=== PATIENT | female | born 1940 | race Caucasian/White ===

== ENCOUNTER 2016-06-04 08:17 | Observation (INO) | payer MEDICARE ==
[2016-06-04] MEDS ORDERED: ECOTRIN PO ONE (08:41)
[2016-06-04] MEDS ORDERED: NACL 0.9% 500 ML 500 ML IV SCH (09:00)
[2016-06-04 10:02] LABS: Basophils % (Auto) 0.7 % (0.0-1.8); Eosinophils % (Auto) 2.9 % (0.0-4.3); Hematocrit 40.6 % (30.3-42.9); Hemoglobin 13.3 gm/dl (10.1-14.3); Mean Corpuscular HGB Conc 33 % (30-34); Mean Corpuscular Hemoglobin 27 pg (28-32); Mean Corpuscular Volume 83 fl (79-97); Platelet Count 246 K/mm3 (140-440); Red Blood Count 4.91 M/mm3 (3.65-5.03); White Blood Count 9.3 K/mm3 (4.5-11.0)
[2016-06-04] MEDS ORDERED: HEPARIN/NS 5000 UNIT/500ML(CATH LAB) 1,000 ML IR ONE ×2 (10:17→12:57)
[2016-06-04 10:29] LABS: INR 0.9 (0.87-1.13)
[2016-06-04] MEDS: SUBLIMAZE ONE ×5 (10:46→13:09)
[2016-06-04] MEDS: VERSED ONE ×4 (10:46→13:09)
[2016-06-04] MEDS: XYLOCAINE 1% 20 mL ONE ×3 (10:46→11:20)
[2016-06-04] MEDS ORDERED: APRESOLINE ONE (11:06)
[2016-06-04] MEDS ORDERED: HEPARIN/ 0.45% NACL-25,000 UNIT/500 ML 500 ML ONE ×2 (11:28→11:36)
[2016-06-04] MEDS ORDERED: NITROGLYCERIN SYRINGE 3 ML ONE (12:57)
[2016-06-04] MEDS ORDERED: XYLOCAINE 1% 20 mL ONE (12:57)
[2016-06-04] MEDS ORDERED: NACL 0.9% 500 ML 500 ML ONE (13:01)
[2016-06-04] MEDS ORDERED: SUBLIMAZE ONE (13:14)
[2016-06-04] MEDS ORDERED: VERSED ONE (13:14)
[2016-06-04] MEDS: BENADRYL ONE ×2 (13:15→13:26)
[2016-06-04] MEDS: HEPARIN 10,000 UNITS/10 ML ONE ×2 (13:25→13:33)
--- NOTE | 2016-06-04 13:42 | Cardiac Catherization Report ---
LEFT HEART CATHETERIZATION PROCEDURES PERFORMED: 1. Selective left and right coronary angiography. 2. Left ventriculography. DESCRIPTION OF PROCEDURE: After obtaining written consent, the patient was draped using sterile technique. A 2% lidocaine was injected into the right groin. Using micropuncture technique, a 5-Indian vascular sheath was inserted into the right common femoral artery. A 5-Indian JL4 catheter was used to selectively engage the left coronary artery. A 5-Indian 3DRC catheter was used to selectively engage the right coronary artery. A 5-Indian JR4 catheter was used to perform a hand injected LV gram. No complications occurred during the procedure. ESTIMATED BLOOD LOSS: Minimal. SPECIMEN REMOVED: None. FINDINGS: HEMODYNAMICS: Aortic pressure is 188/78, left ventricular systolic pressure is 188 mmHg with a diastolic pressure of 39 mmHg. No significant gradient was noted across left ventricular outflow tract. CARDIAC STRUCTURES: The left ventricle is normal in size and systolic function with the left ventricular ejection fraction estimated at 60%. CORONARY ANATOMY: 1. This is a right dominant circulation. 2. The left main has mild nonobstructive luminal irregularities. 3. The left anterior descending artery has evidence of a 20% tubular stenosis in the proximal segment. This is followed by another 40% tubular stenosis in the mid segment. The distal LAD tapers to a 1-2 mm vessel diameter. There is evidence of a patent stent noted in the first diagonal artery. 4. The left circumflex artery is a small caliber vessel. The left circumflex artery exhibits evidence of an 80% tubular stenosis of the first obtuse marginal. There is also another tubular 80% stenosis of the second obtuse marginal. 5. The right coronary artery is dominant. The right coronary artery has a 40% tubular stenosis extending from the ostium into the proximal segment of the vessel. No significant flow limiting obstruction noted. IMPRESSION: 1. Significant obstructive disease noted in the first and second obtuse marginal of the left circumflex system. 2. Patent stent noted in the first diagonal artery. 3. Normal left ventricular size and systolic function. 4. Elevated LVEDP measured at 39 mmHg. RECOMMENDATIONS: Proceed with PCI to the obtuse marginals. [facility]# [id number] JANINE/ROSALBA
[2016-06-04] MEDS: PLAVIX ONE ×2 (13:50→13:53)
[2016-06-04] MEDS: ALUM-MAG HYDROX-SIMETH 200-200-20MG/5ML ONE ×2 (13:53→14:03)
[2016-06-04] MEDS ORDERED: TYLENOL PO PRN (14:12)
[2016-06-04] MEDS ORDERED: ZOFRAN IV PRN (14:12)
[2016-06-04] MEDS ORDERED: AMBIEN PO PRN (14:12)
[2016-06-04] MEDS ORDERED: PEPCID PO PRN (14:14)
[2016-06-04] MEDS ORDERED: ROBAXIN PO PRN (14:14)
--- NOTE | 2016-06-04 14:22 | Cardiac Catherization Report ---
CORONARY ANGIOPLASTY REASON FOR PROCEDURE: The patient is a 75-year-old woman who underwent cardiac catheterization today. Please see cardiac catheterization report as dictated by Dr. Martini. She was referred to the interventional service for angioplasty and stenting of the circumflex system. Review of the angiograms reveals a long up to 80% stenosis of the large first obtuse marginal branch of the circumflex system. Following that, there was diffuse atherosclerosis of the AV groove circumflex leading to a much smaller caliber terminal obtuse marginal. We planned for coronary intervention to the first obtuse marginal. PROCEDURE: A 3.5 EBU guiding catheter was advanced to the left coronary ostium. Preintervention angiograms were taken. A 0.014 inch Flamer Sealer 50 guidewire was then introduced, across the stenosis into the large first obtuse marginal branch. In the primary stenting maneuver, a 2.5 x 15 mm Xience drug-eluting stent was deployed covering the entire lesional segment. The stent was inflated to optimum pressures. Following stenting, there was an excellent angiographic result, 0 residual stenosis at the treated site, and MILDRED 3 flow down the vessel. No intervention was performed to the diffuse atherosclerosis of the mid vessel leading to a small terminal obtuse marginal. CONCLUSION: Successful angioplasty and stenting of the first obtuse marginal branch of the circumflex system. A 2.5 mm Xience drug-eluting stent was used to successfully treat a long 80% stenosis, with an excellent postprocedure angiographic result. JOB# [id number] BRENDAN/ROSALBA
--- NOTE | 2016-06-04 14:27 | Event Note ---
Date: 06/04/16 Successful PCI of the OM1 with 2.5mm DE stent. Admit overnight post PCI obs. Okay for discharge in am. Same home meds.
--- NOTE | 2016-06-04 14:34 | Discharge Summary ---
Short Stay Discharge Plan Activity: advance as tolerated Weight Bearing Status: Partial Weight Bearing Diet: low fat, low cholesterol, low salt, diabetic Wound: keep clean and dry Special Instructions: no heavy lifting (3 days) Follow up with: ABHILASH YOUNG MD [Primary Care Provider] - 7 Days CHRISSY ROSALES MD [Staff Physician] - 7 Days
[2016-06-04] MEDS ORDERED: NACL 0.9% 1000 ML 1,000 ML IV SCH (15:00)
[2016-06-04] MEDS: ULTRAM PO PRN (15:10)
[2016-06-04] MEDS ORDERED: NACL 0.9% 1000 ML 1,000 ML ONE (17:38)
[2016-06-04] MEDS: TENORMIN PO SCH (17:58)
[2016-06-04 20:17] LABS: Calcium 8.2 mg/dL (8.4-10.2); Chloride 102.7 mmol/L (98-107); Potassium 3.8 mmol/L (3.6-5.0)
[2016-06-04] MEDS: NEURONTIN PO SCH (22:10)
[2016-06-05 05:38] LABS: Basophils % (Auto) 0.2 % (0.0-1.8); Eosinophils % (Auto) 0.1 % (0.0-4.3); Hemoglobin 11.9 gm/dl (10.1-14.3); Mean Corpuscular HGB Conc 32 % (30-34); Mean Corpuscular Hemoglobin 27 pg (28-32); Mean Corpuscular Volume 83 fl (79-97); Platelet Count 203 K/mm3 (140-440); Red Blood Count 4.47 M/mm3 (3.65-5.03); Red Cell Distribution Width 15.4 % (13.2-15.2); White Blood Count 9.1 K/mm3 (4.5-11.0)
[2016-06-05] MEDS: NEURONTIN PO SCH ×3 (05:46→22:49)
[2016-06-05 06:00] LABS: Creatine Kinase MB 9.6 ng/mL (0.0-4.0)
[2016-06-05 06:05] LABS: BUN/Creatinine Ratio 16.47; Calcium 7.7 mg/dL (8.4-10.2); Chloride 104.5 mmol/L (98-107); Potassium 4.1 mmol/L (3.6-5.0)
[2016-06-05] MEDS: ECOTRIN PO SCH (09:23)
[2016-06-05] MEDS: CLARITIN PO SCH (09:24)
[2016-06-05] MEDS: PLAVIX PO SCH (09:24)
[2016-06-05] MEDS: K-DUR PO SCH (09:24)
[2016-06-05] MEDS: TENORMIN PO SCH (09:24)
[2016-06-05] MEDS: IMDUR PO SCH (09:24)
[2016-06-05] MEDS: LASIX PO SCH (09:25)
--- NOTE | 2016-06-05 10:29 | XRay Report ---
AP CHEST : 06/04/16 14:12:00 CLINICAL: Chest pain. COMPARISON:10/06/12 FINDINGS: Cardiomegaly and mild redistribution of pulmonary blood flow to the upper lobes. Mild bibasal reticular interstitial opacities which are new compared to the prior exam. No pulmonary consolidation. No tubes or lines. The bones and soft tissues are unremarkable. IMPRESSION: Mild CHF.
--- NOTE | 2016-06-05 10:55 | Progress Note ---
Assessment and Plan 1. Coronary artery disease status post PCI to the obtuse marginal branch currently stable 2. Essential hypertension 3. Obesity 4. Hyperlipidemia 5. Mild acute on chronic renal insufficiency. Plan. Acute on chronic renal insufficiency post cardiac cath and PCI probably secondary to contrast nephropathy. Start mild IV hydration monitor BUN/ creatinine and creatinine. Subjective Date of service: 06/05/16 Interval history: No cardiac symptoms. Objective Vital Signs Temp Pulse Pulse Resp Resp BP BP 06/05/16 08:07 97.4 F L 72 20 151/65 06/05/16 05:15 98.2 F 75 18 151/70 06/05/16 00:36 80 18 06/05/16 00:31 97.6 F 83 20 158/67 06/04/16 22:04 06/04/16 20:32 18 06/04/16 20:21 98.2 F 77 18 139/63 06/04/16 19:23 77 06/04/16 18:00 78 16 167/64 06/04/16 17:58 78 147/63 06/04/16 17:30 78 16 158/59 06/04/16 16:30 79 14 157/60 06/04/16 16:00 80 13 156/69 06/04/16 15:30 82 14 144/69 06/04/16 15:00 82 16 149/57 06/04/16 14:45 85 16 141/62 06/04/16 14:30 84 14 136/62 06/04/16 14:15 97.6 F 84 18 146/59 06/04/16 12:30 80 18 172/67 06/04/16 12:15 78 18 164/69 06/04/16 11:53 98.3 F 79 18 177/68 Pulse Ox 06/05/16 08:07 96 06/05/16 05:15 98 06/05/16 00:36 06/05/16 00:31 93 06/04/16 22:04 95 06/04/16 20:32 06/04/16 20:21 97 06/04/16 19:23 06/04/16 18:00 98 06/04/16 17:58 06/04/16 17:30 96 06/04/16 16:30 97 06/04/16 16:00 98 06/04/16 15:30 98 06/04/16 15:00 99 01/13/17 14:45 98 06/04/16 14:30 97 06/04/16 14:15 98 06/04/16 12:30 99 06/04/16 12:15 99 06/04/16 11:53 98 - Physical Examination General: Appears Well, No Apparent Distress HEENT: Positive: Normocephaly Neck: Positive: neck supple, trachea midline. Negative: JVD/HJR Cardiac: Positive: Reg Rate and Rhythm, S1/S2, PMI, Laterally Displaced Lungs: Positive: clear to auscultation, No Wheeze, Rales, Rhonchi Neuro: Positive: Grossly Intact Abdomen: Positive: Unremarkable, Active Bowel Sounds Extremities: Absent: edema - Labs and Meds Cardiac Enzymes 06/05/16 Range/Units 05:04 CK-MB (CK-2) 9.6 H (0.0-4.0) ng/mL Coagulation 06/04/16 Range/Units 09:35 APTT 23.5 L (24.2-36.6) Sec. Lipids 06/05/16 Range/Units 05:04 Triglycerides 128 (2-149) mg/dL Cholesterol 240 H (50-199) mg/dL HDL Cholesterol 95 H (40-59) mg/dL Cholesterol/HDL Ratio 2.52 % CBC 06/05/16 Range/Units 05:04 WBC 9.1 (4.5-11.0) K/mm3 RBC 4.47 (3.65-5.03) M/mm3 Hgb 11.9 (10.1-14.3) gm/dl Hct 37.0 (30.3-42.9) % Plt Count 203 (140-440) K/mm3 Lymph # 2.5 (1.2-5.4) K/mm3 [place] # 0.6 (0.0-0.8) K/mm3 Eos # 0.0 (0.0-0.4) K/mm3 Baso # 0.0 (0.0-0.1) K/mm3 Comprehensive Metabolic Panel 06/04/16 06/05/16 Range/Units 19:33 05:04 Sodium 137 139 (137-145) mmol/L Potassium 3.8 4.1 (3.6-5.0) mmol/L Chloride 102.7 104.5 (98-107) mmol/L Carbon Dioxide 20 L 20 L (22-30) mmol/L BUN 24 H 28 H (7-17) mg/dL Creatinine 1.5 H 1.7 H (0.7-1.2) mg/dL Glucose 236 H 245 H (65-100) mg/dL Calcium 8.2 L 7.7 L (8.4-10.2) mg/dL - Telemetry EKG Rhythm: Sinus Rhythm
[2016-06-05] MEDS ORDERED: NACL 0.45% 500 ML IV SCH (11:00)
[2016-06-05 12:00] LABS: BUN/Creatinine Ratio 16.47; Calcium 7.6 mg/dL (8.4-10.2); Potassium 4.1 mmol/L (3.6-5.0)
[2016-06-05] MEDS: ULTRAM PO PRN (23:36)
[2016-06-06] MEDS: NEURONTIN PO SCH ×3 (05:29→22:24)
[2016-06-06] MEDS: PLAVIX PO SCH (09:46)
[2016-06-06] MEDS: ECOTRIN PO SCH (09:46)
[2016-06-06] MEDS: IMDUR PO SCH (09:46)
[2016-06-06] MEDS: K-DUR PO SCH (09:47)
[2016-06-06] MEDS: TENORMIN PO SCH (09:47)
[2016-06-06] MEDS: CLARITIN PO SCH (09:48)
[2016-06-06] MEDS: LASIX PO SCH (09:48)
[2016-06-06] MEDS ORDERED: HABITROL TD SCH (10:00)
--- NOTE | 2016-06-06 10:03 | Progress Note ---
Assessment and Plan 1. Coronary artery disease status post PCI to the obtuse marginal branch currently stable 2. Essential hypertension 3. Obesity 4. Hyperlipidemia 5. Mild acute on chronic renal insufficiency. Plan. Acute on chronic renal insufficiency post cardiac cath and PCI probably secondary to contrast nephropathy. Started on IV hydration check BMP today. Subjective Date of service: 06/06/16 Interval history: No cardiac symptoms. Objective Vital Signs Temp Pulse Pulse Resp BP Pulse Ox 06/06/16 07:30 98.3 F 65 22 190/78 96 06/06/16 05:03 97.6 F 67 18 163/54 94 06/06/16 04:00 62 06/06/16 00:09 98.2 F 65 18 177/70 94 06/05/16 20:07 97.8 F 67 20 142/63 99 06/05/16 15:21 98.4 F 64 20 108/54 97 06/05/16 15:00 75 06/05/16 11:12 97.2 F L 66 20 129/60 97 - Physical Examination General: Appears Well, No Apparent Distress HEENT: Positive: Normocephaly Neck: Positive: neck supple, trachea midline. Negative: JVD/HJR Cardiac: Positive: Regular Rate, S1/S2, PMI, Other Lungs: Positive: clear to auscultation, No Wheeze, Rales, Rhonchi Neuro: Positive: Grossly Intact Abdomen: Positive: Unremarkable, Active Bowel Sounds Extremities: Absent: edema - Labs and Meds Comprehensive Metabolic Panel 06/05/16 Range/Units 11:10 Sodium 139 (137-145) mmol/L Potassium 4.1 (3.6-5.0) mmol/L Chloride 104.0 (98-107) mmol/L Carbon Dioxide 20 L (22-30) mmol/L BUN 28 H (7-17) mg/dL Creatinine 1.7 H (0.7-1.2) mg/dL Glucose 226 H (65-100) mg/dL Calcium 7.6 L (8.4-10.2) mg/dL
[2016-06-06 11:16] LABS: Calcium 7.5 mg/dL (8.4-10.2); Chloride 102.8 mmol/L (98-107); Potassium 4.1 mmol/L (3.6-5.0)
[2016-06-06] MEDS: NACL 0.45% 1000 ML 1,000 ML IV SCH (11:55)
[2016-06-06] MEDS: ULTRAM PO PRN (20:30)
[2016-06-07] MEDS: NACL 0.45% 1000 ML 1,000 ML IV SCH (05:21)
[2016-06-07] MEDS: NEURONTIN PO SCH ×2 (05:21→14:37)
[2016-06-07] MEDS: IMDUR PO SCH ×2 (09:52→09:53)
[2016-06-07] MEDS: PLAVIX PO SCH (09:52)
[2016-06-07] MEDS: LASIX PO SCH (09:53)
[2016-06-07] MEDS: K-DUR PO SCH (09:53)
[2016-06-07] MEDS: CLARITIN PO SCH (09:53)
[2016-06-07] MEDS: ECOTRIN PO SCH (09:53)
[2016-06-07 10:13] LABS: BUN/Creatinine Ratio 18.23; Calcium 7.8 mg/dL (8.4-10.2); Chloride 99.3 mmol/L (98-107)
[2016-06-07 10:15] LABS: Potassium 4.7 mmol/L (3.6-5.0)
[2016-06-07] MEDS: TENORMIN PO SCH (10:15)
--- NOTE | 2016-06-07 10:48 | Admit Criteria Form ---
Admission Criteria Documentation: TELEMETRY CARE Telemetry Admission Guidelines (Place 'X' for any and all applicable criteria): Admission to telemetry [A] may be indicated for ANY ONE of the following(1)(2)(3 )(4)(5): [X ]I. Cardiac disease, including ANY ONE of the following (9)(10)(11)(12)( 13): [ ]a) Postacute DE [ ]b) Low-risk patients with ST-segment elevation DE who have undergone successful percutaneous coronary intervention [ ]c) Unstable angina [ ]d) Suspected DE (until it is ruled out) [ ]e) Post cardiac surgery (first 48 to 72 hours unless complications occur) [ ]f) Acute arrhythmias (including significant tachycardia or bradycardia) [B] [ ]g) Firing of an implantable cardioverter defibrillator [C] [ ]h) Suspected pacemaker or implantable cardioverter defibrillator malfunction (10) [ ]i) New administration or adjustment of an antiarrhythmic drug [D ] [ ]j) Child admitted for acute congestive heart failure [ ]j) Long QT syndrome [ ]k) Advanced heart block (eg, second-degree Mobitz type II, third- degree heart block) [ ]l) Acute myocarditis or pericarditis [X ]m) Short-term (ambulatory or inpatient) monitoring after a cardiac procedure as indicated by ANY ONE of the following [E]: [ ]i) Electrophysiologic studies [ X]ii) Percutaneous coronary intervention with stent placement [ ]iii) Pacemaker placement with cardiac conduction defect [ ]iv) Implantable cardiac defibrillator placement [ ]II. Drug overdose or poisoning with substance that causes arrhythmias or QT prolongation (eg, phenothiazines, sympathomimetic agents, cyclic antidepressants, digitalis, antiarrhythmic drugs)(15) [ ]III. Short-term (ambulatory or inpatient) monitoring after therapeutic or diagnostic procedure requiring conscious sedation or anesthesia (eg, endoscopy, elective cardioversion) [ ]IV. Acute cerebrovascular even[F](18) [ ]V. Massive blood transfusion (eg, at least 10 units of packed red blood cells in 24 hours) [ ]. Variceal bleeding after endoscopy, sclerotherapy, or IV vasopressin [ ]VII. Uncorrected electrolyte abnormalities associated with an increased risk of dangerous arrhythmia [G]; examples include [ ]a) Hyperkalemia with attributable ECG changes [ ]b) Potassium greater than 6.5 mmol/L (mEq/L) in a patient without history of chronic renal disease [ ]c) Prolonged QT attributed to hypokalemia, hypomagnesemia, or hypocalcemia [ ]VIII.Unexplained syncope or other neurologic event suspected of being due to arrhythmia due to a finding that increases risk; examples include(19)(20)(21): [ ]a) High-risk ECG findings (eg, bifascicular block, bradycardia, abnormal QT interval, ventricular pre- excitation) [ ]b) History of previous syncope due to arrhythmia [ ]c) Abnormal ventricular function (eg, reduced ejection fraction ) [ ]d) Exertional or supine syncope [ ]e) Concerning syncope characteristics (eg, sudden loss of consciousness without prodrome) [ ]f) Family history of sudden [ ]g) Use of arrhythmogenic medication [ ]h) Suspected cardiac ischemia [ ]i) Known channelopathy (eg, long QT syndrome, Brugada syndrome, or catecholaminergic paroxysmal ventricular tachycardia) [ ]j) Known structural heart disease (eg, hypertrophic cardiomyopathy , severe valvular disease) [ ]k) Palpitations preceding syncope The original [employer] content created by [employer] has been revised. The portions of the content which have been revised are identified through the use of italic text or in bold, and [employer] [employer] has neither reviewed nor approved the modified material. All other unmodified content is copyright [employer]. Please see references footnoted in the original [employer] edition 2016 Admission Criteria Met: Yes
[2016-06-07 12:47] VITALS: BP 195/66
--- NOTE | 2016-06-07 14:39 | Discharge Summary ---
[id number] 06/04/16 14:12 Date of discharge: 06/07/16 Attending physician: CHRISSY ROSALES 06/04/16 Consult to Cardiac Rehabilitation [CONS] Routine Reason For Exam: post pci Primary care physician: ABHILASH YOUNG Hospitalization Condition: Good Hospital course: Patient with a history of coronary disease presented from the outpatient setting for a cardiac cath that showed patent stent noted in the first diagonal artery. There was significant coronary disease noted of the first obtuse marginal of the circumflex system which was treated with angioplasty and stenting using a Xience drug eluting stent. Left ventricular ejection fraction 60%. Post cardiac cath there was acute renal failure with a creatinine of 1.8 from 1.5 on presentation which was treated with IV hydration. Her creatinine has now stablized, today 1.7, and she is ready for discharge home today. Continue medical therapy for her coronary artery disease to include plavix, aspirin, beta blockers and statin therapy. Disposition: DISCHARGED TO HOME OR SELFCARE Core Measure Documentation - Palliative Care Palliative Care/ Comfort Measures: Not Applicable - Core Measures Any of the following diagnoses?: none Exam - Constitutional Vitals: Temp Pulse Resp BP Pulse Ox 97.6 F 61 22 195/66 97 06/07/16 12:46 06/07/16 12:46 06/07/16 12:46 06/07/16 12:46 06/07/16 12:46 General appearance: Present: no acute distress - EENT Eyes: Present: PERRL ENT: hearing intact - Neck Neck: Present: normal ROM - Respiratory Respiratory effort: normal - Cardiovascular Rhythm: regular Heart Sounds: Present: S1 & S2 - Psychiatric Psychiatric: appropriate mood/affect Plan Activity: advance as tolerated Diet: low fat, low cholesterol, low salt Additional Instructions: Continue home medications including plavix and aspirin. Follow up with: CHRISSY ROSALES MD [Staff Physician] - 7 Days ABHILASH YOUNG MD [Primary Care Provider] - 7 Days <BELINDA PAINTING - Last Filed: 06/07/16 20:24> Providers - Providers Date of Admission: 06/04/16 14:12 Attending physician: CHRISSY ROSALES 06/04/16 Consult to Cardiac Rehabilitation [CONS] Routine Reason For Exam: post pci Primary care physician: ABHILASH YOUNG Hospitalization Hospital course: Patient was admitted for observation after outpatient diagnostic cardiac catheterization followed by coronary intervention and stent placement. Discharge was delayed due to mild increase in her creatinine level post contrast angiography and intervention. Today, the patient looks and feels well, her creatinine has returned to baseline , and she is stable for discharge. Discharge she will be treated with routine anti-ischemic medications in addition to dual oral antiplatelet therapy. Exam - Constitutional Vitals: Temp Pulse Resp BP Pulse Ox 97.6 F 61 22 195/66 97 06/07/16 12:46 06/07/16 12:46 06/07/16 12:46 06/07/16 12:46 06/07/16 12:46
== END 2016-06-07 15:14 | disposition home or self-care (01) ==
LOC: OPU 08:17 → 4A 14:12
PROVIDERS: ADMIT Internal Medicine Cardiovascular Disease; ATTEND Internal Medicine
DX: I25.10 Atherosclerotic heart disease of native coronary artery without angina pectoris (principal); E11.65 Type 2 diabetes mellitus with hyperglycemia; E78.5 Hyperlipidemia, unspecified; I11.0 Hypertensive heart disease with heart failure; I50.30 Unspecified diastolic (congestive) heart failure; I87.2 Venous insufficiency (chronic) (peripheral); Z98.61 Coronary angioplasty status
CPT/HCPCS: 36415; 51702; 71010; 80048; 80061; 82550; 82553; 82962; 84484; 85025; 85347; 85610; 85730; 93005; 93010; 93458; 96372; 96374; A9270; C1769; C1874; C1887; C1894; C9600; G0378; J0360; J1200; J1644; J2250; J2930; J3010; J7030; J7040; 92928; 96365; 96376; J1815; Q9967

== ENCOUNTER 2016-09-10 10:25 | Outpatient (CLI) | payer MEDICARE ==
[2016-09-10 10:58] LABS: Hematocrit 39.2 % (30.3-42.9); Hemoglobin 12.5 gm/dl (10.1-14.3); Mean Corpuscular HGB Conc 32 % (30-34); Mean Corpuscular Hemoglobin 26 pg (28-32); Mean Corpuscular Volume 82 fl (79-97); Platelet Count 180 K/mm3 (140-440); Red Cell Distribution Width 14.1 % (13.2-15.2); White Blood Count 6.9 K/mm3 (4.5-11.0)
[2016-09-10 11:19] LABS: Albumin 3.3 g/dL (3.9-5); Albumin/Globulin Ratio 0.9 %; BUN/Creatinine Ratio 15.71; Bilirubin,Total 0.3 mg/dL (0.1-1.2); Calcium 8.7 mg/dL (8.4-10.2); Total Protein 7.1 g/dL (6.3-8.2)
--- NOTE | 2016-09-10 13:19 | XRay Report ---
CHEST 2 VIEWS INDICATION: Shortness of breath. COMPARISON: 06/05/2016 FINDINGS: PA and lateral chest radiographs again demonstrate extensive atherosclerotic aortic calcifications. Mild horizontal left mid lung scarring or atelectasis. No pleural effusions or CHF. Stable cardiomediastinal silhouette/mild cardiomegaly. Demineralized bones with mild thoracic spine degenerative spurring. CONCLUSION: No significant acute chest process with mild cardiomegaly and few other incidental findings, as above. Thank you for the opportunity to participate in this patient's care.
--- NOTE | 2016-09-10 13:57 | Nuclear Medicine Report ---
LUNG SCAN, VENTILATION AND PERFUSION: History: Shortness of breath. Findings: Inhalation of Xenon gas demonstrates a normal distribution of the activity throughout both lungs. The wash out phases show no focal retention of activity. After injection of Technetium 99m macroaggregated albumin gamma camera imaging of the lungs in multiple projections demonstrates normal pulmonary contours with a homogeneous distribution of activity. No focal areas of perfusion deficiency are identified. IMPRESSION: Normal study.
--- NOTE | 2016-09-13 07:25 | Vascular Lab Report ---
LOWER EXTREMITY VENOUS DUPLEX: REASON FOR EXAM: Swelling. COMMENTS ON THE RIGHT: All veins visualized are freely compressible without evidence of internal echogenicity. Flow is spontaneous and phasic throughout. 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 Flow is spontaneous and phasic throughout. IMPRESSION: No evidence of acute or chronic deep venous thrombosis in either lower extremity.
== END 2016-09-10 10:26 | disposition home or self-care (01) ==
LOC: VAS 10:25
PROVIDERS: ATTEND Internal Medicine
DX: I51.7 Cardiomegaly (principal); I70.0 Atherosclerosis of aorta; J98.11 Atelectasis
CPT/HCPCS: 36415; 71020; 78582; 80053; 85027; 93970; A9540; A9558

== ENCOUNTER 2017-01-13 09:01 | Day surgery (SDC) | payer MEDICARE ==
[2017-01-13 09:59] LABS: Basophils % (Auto) 0.5 % (0.0-1.8); Eosinophils % (Auto) 4.3 % (0.0-4.3); Hematocrit 36.2 % (30.3-42.9); Hemoglobin 11.9 gm/dl (10.1-14.3); Mean Corpuscular HGB Conc 33 % (30-34); Mean Corpuscular Hemoglobin 27 pg (28-32); Mean Corpuscular Volume 81 fl (79-97); Platelet Count 191 K/mm3 (140-440); Red Blood Count 4.47 M/mm3 (3.65-5.03); Red Cell Distribution Width 14.4 % (13.2-15.2); White Blood Count 8.7 K/mm3 (4.5-11.0)
[2017-01-13 10:24] LABS: INR 0.96 (0.87-1.13)
[2017-01-13 10:36] LABS: BUN/Creatinine Ratio 13.33; Calcium 8.6 mg/dL (8.4-10.2); Chloride 100.7 mmol/L (98-107); Potassium 4.3 mmol/L (3.6-5.0)
[2017-01-13] MEDS ORDERED: NACL 0.9% 500 ML 500 ML ONE (10:47)
[2017-01-13] MEDS ORDERED: NACL 0.9% 500 ML 500 ML IV SCH (11:00)
[2017-01-13] MEDS ORDERED: HEPARIN/NS 5000 UNIT/500ML(CATH LAB) 1,000 ML IR ONE (12:00)
[2017-01-13] MEDS ORDERED: BENADRYL ONE (12:02)
[2017-01-13] MEDS ORDERED: VERSED ONE (12:02)
[2017-01-13] MEDS: SUBLIMAZE ONE ×3 (12:33→12:43)
[2017-01-13] MEDS ORDERED: APRESOLINE ONE (12:36)
[2017-01-13] MEDS: XYLOCAINE 2% INFILTRATI ONE ×2 (12:40→12:41)
[2017-01-13] MEDS: NITROSTAT SL ONE ×2 (12:40→12:41)
[2017-01-13] MEDS ORDERED: CATAPRES PO PRN (13:13)
[2017-01-13] MEDS ORDERED: ULTRAM PO PRN (13:13)
--- NOTE | 2017-01-13 13:21 | Discharge Summary ---
Short Stay Discharge Plan Activity: advance as tolerated Weight Bearing Status: Full Weight Bearing Diet: low fat, low cholesterol, low salt, diabetic Wound: keep clean and dry Special Instructions: no heavy lifting (3 days) Follow up with: ABHILASH YOUNG MD [Primary Care Provider] - 7 Days REYNA VENTURA MD [Staff Physician] - 7 Days Prescriptions: amLODIPine [Norvasc] 5 mg PO DAILY #30 tab
[2017-01-13] MEDS ORDERED: NACL 0.9% 1000 ML 1,000 ML IV SCH (14:00)
[2017-01-13 17:01] VITALS: BP 117/54
--- NOTE | 2017-01-13 19:23 | Cardiac Catherization Report ---
REASON FOR PROCEDURE: Coronary artery disease and chest pain. DESCRIPTION OF PROCEDURE: The patient was prepped and draped in a sterile fashion after informed consent. The right femoral artery was entered using the Seldinger technique. A 6-Wolof sheath was placed in the right femoral artery. Selective left and right coronary angiography was performed using #4 right and left Octaviano catheters. The catheters were removed, sheath removed, and hemostasis achieved using an Angio-Seal device. The patient was returned to the postprocedure unit in stable condition. Chronic kidney disease. Prior to procedure, the patient was recognized with chronic kidney disease, creatinine at baseline 1.7. Additional discussions we had with regards to the high risk of contrast nephropathy, which patient understands and consented to proceed. In recognition of the chronic kidney disease, we performed the procedure with limited contrast exposure, total less than 30 mL limited to coronary angiography. FINDINGS: HEMODYNAMICS: Ascending aortic pressure was 180/100. CORONARY ANGIOGRAPHY: There was mild ostial narrowing of the left main coronary artery. The left anterior descending artery contained diffuse mild atherosclerosis of its proximal, mid, and distal segments. A large first diagonal branch of the LAD contained a stent within its proximal to mid segment. This diagonal stent was widely patent. The circumflex artery was also notable for a stent in its proximal to mid segment. The circumflex stent was also patent. Otherwise, mild luminal irregularities were noted of the rest of the circumflex system. The right coronary artery was dominant. This vessel contained a 30% ostial stenosis associated with calcification of the ostium. Following this, there was a 40-50% stenosis of the proximal segment. Following that, the mid vessel was notable for a previous stent. The mid right coronary artery stent contained a 20-30% in-stent restenosis. Otherwise, mild diffuse atherosclerosis was noted of the distal right coronary segments. CONCLUSION: 1. Widely patent stents in the diagonal branch, circumflex and mid right coronary arteries. 2. Residual small vessel disease. 3. Total contrast less than 30 mL. RECOMMENDATION: Risk factor modification and medical therapy. JOB# [id number] CA/NTS
== END 2017-01-13 17:30 | disposition home or self-care (01) ==
LOC: CATHLABREC 09:01
PROVIDERS: ATTEND Internal Medicine Cardiovascular Disease
DX: I25.10 Atherosclerotic heart disease of native coronary artery without angina pectoris (principal); I13.0 Hypertensive heart and chronic kidney disease with heart failure and stage 1 through stage 4 chronic kidney disease, or unspecified chronic kidney disease; N18.9 Chronic kidney disease, unspecified; I50.9 Heart failure, unspecified; E78.5 Hyperlipidemia, unspecified; K21.9 Gastro-esophageal reflux disease without esophagitis; E11.22 Type 2 diabetes mellitus with diabetic chronic kidney disease; E11.65 Type 2 diabetes mellitus with hyperglycemia; Z88.0 Allergy status to penicillin; Z91.041 Radiographic dye allergy status; Z79.4 Long term (current) use of insulin; Z79.82 Long term (current) use of aspirin; Z79.899 Other long term (current) drug therapy; Z95.5 Presence of coronary angioplasty implant and graft; Z98.890 Other specified postprocedural states; Z72.89 Other problems related to lifestyle; Z87.891 Personal history of nicotine dependence
CPT/HCPCS: 36415; 80048; 82962; 85025; 85610; 85730; 93005; 93010; 93458; 96360; 96361; C1760; C1894; J0360; J1200; J1644; J1720; J2250; J3010; J7030; J7040; Q9967

== ENCOUNTER 2017-01-14 12:48 | Outpatient (CLI) | payer MEDICARE ==
--- NOTE | 2017-01-14 14:27 | Ultrasound Report ---
ULTRASOUND RENAL BILATERAL INDICATION: Elevated creatinine level. COMPARISON: 01/15/2015 renal ultrasound. 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 Left kidney demonstrates normal contours and estimated at 10.5 x 5.4 x 5 cm with cortical thickness of 1.7 cm. No hydronephrosis. Borderline/slight increased renal cortical echogenicity. Included urinary bladder suboptimally distended and assessed. CONCLUSION: Mild underlying medical renal disease suspected on the left in this patient with right nephrectomy again noted. Please correlate. Thank you for the opportunity to participate in this patient's care.
== END 2017-01-14 12:49 | disposition home or self-care (01) ==
LOC: US 12:48
PROVIDERS: ATTEND Urology
DX: N32.89 Other specified disorders of bladder (principal); R94.4 Abnormal results of kidney function studies; I12.9 Hypertensive chronic kidney disease with stage 1 through stage 4 chronic kidney disease, or unspecified chronic kidney disease; N18.9 Chronic kidney disease, unspecified; I25.10 Atherosclerotic heart disease of native coronary artery without angina pectoris; E78.00 Pure hypercholesterolemia, unspecified; F41.9 Anxiety disorder, unspecified; Z90.5 Acquired absence of kidney; Z87.891 Personal history of nicotine dependence
CPT/HCPCS: 76770